=== PATIENT | male | born 1990 | race Caucasian/White ===

== ENCOUNTER 2020-01-31 12:42 | Outpatient (REF) | payer OTHER, SELFPAY ==
[2020-01-31 14:37] LABS: Free T4 (Free Thyroxine) 1.15 ng/dL (0.71-1.85); Thyroid Stimulating Hormone 1.35 mIU/mL (0.32-4.0)
[2020-01-31 15:10] LABS: Folate 15.2 ng/mL (> or = 4.0); Vitamin B12 809 pg/mL (200-900)
[2020-02-08 09:05] LABS: Testosterone, Free 77.1 pg/mL (35.0-155.0); Testosterone, Total 514 ng/dL (250-1100)
== END 2020-01-31 12:43 | disposition home or self-care (01) ==
LOC: HO.10HDL 12:42
PROVIDERS: PCP Internal Medicine; Visit Provider Internal Medicine
DX: Z13.29 Encounter for screening for other suspected endocrine disorder (principal)
CPT/HCPCS: 36415; 82607; 82746; 84402; 84403; 84439; 84443

== ENCOUNTER 2020-02-03 | Outpatient (REF) | payer OTHER, SELFPAY | END 2020-02-03 00:01 | disposition home or self-care (01) | LOC: CF | PROVIDERS: Visit Provider Surgery | DX: R10.9 Unspecified abdominal pain (principal); K64.9 Unspecified hemorrhoids | CPT/HCPCS: 46600; 99203 ==

== ENCOUNTER 2020-02-17 10:12 | Outpatient (REF) | payer OTHER, SELFPAY ==
--- NOTE | 2020-02-17 | US_ITS ---
EXAMINATION: US ABDOMEN COMPLETE CLINICAL INFORMATION: Abdominal pain. COMPARISON: None. TECHNIQUE: Real-time imaging of the abdominal viscera. FINDINGS: PANCREAS: Normal. ABDOMINAL AORTA: The proximal, mid, and distal segments are normal in caliber. INFERIOR VENA CAVA: Visualized portions are normal. LIVER: Normal. The liver is normal in size. The liver contour is normal. Parenchymal echogenicity is normal. No focal hepatic lesion. There is no intrahepatic biliary duct dilatation seen. GALLBLADDER: The gallbladder is physiologically distended. There are small echogenic mobile gallstones are present. No evidence of gallbladder wall thickening or pericholecystic fluid. COMMON BILE DUCT: Normal in caliber measuring 0.5 cm in diameter. RIGHT KIDNEY: There is a mildly dilated proximal ureter and renal pelvis. No renal calculi or focal parenchymal lesions. The kidney measures 11.0 cm in maximum dimension. LEFT KIDNEY: Normal. No hydronephrosis. No renal calculi or focal parenchymal lesions. The kidney measures 10.7 cm in maximum dimension. SPLEEN: Normal. The spleen measures 12.5 cm in maximum dimension. FREE FLUID: None. IMPRESSION: Small echogenic mobile gallstones without wall thickening. Mild hydronephrosis and dilated right proximal ureter with no obstructive etiology seen. The mid and distal right ureter not well seen. Ureteral jets in the bladder were attempted but not seen.
== END 2020-02-17 10:13 | disposition home or self-care (01) ==
LOC: HO.US 10:12
PROVIDERS: PCP Internal Medicine; Visit Provider Internal Medicine
DX: R10.9 Unspecified abdominal pain (principal)
CPT/HCPCS: 76700

== ENCOUNTER 2022-06-27 16:28 | Outpatient (REF) | payer OTHER, SELFPAY ==
--- NOTE | ~2022-06-27 | XR_ITS ---
EXAMINATION: XR HIP, RIGHT CLINICAL INFORMATION: Right hip pain COMPARISON: None TECHNIQUE: Two views of the right hip and single view of the pelvis. FINDINGS: No acute visible fracture or dislocation. Slight spurring along the lateral margin of the femoral head and neck junction. Joint spaces and alignment are maintained. Soft tissues are unremarkable. XR/XR hip RT min 2V IMPRESSION: 1. No acute visible fracture or dislocation. 2. Slight spurring along the lateral margin of the right femoral head and neck junction.
== END 2022-06-27 16:29 | disposition home or self-care (01) ==
LOC: HO.XRAY 16:28
PROVIDERS: PCP Internal Medicine; Visit Provider Internal Medicine
DX: M25.551 Pain in right hip (principal); Z91.81 History of falling
CPT/HCPCS: 73502

== ENCOUNTER → 2022-08-01 14:04 | Outpatient (BNVA) | payer OTHER, SELFPAY | PROVIDERS: PCP Internal Medicine; Visit Provider Orthopaedic Surgery | DX: M25.851 Other specified joint disorders, right hip (principal) | CPT/HCPCS: 99202 ==